=== PATIENT | male | born 1950 | race Caucasian/White ===

== ENCOUNTER 2022-08-20 10:01 | Emergency (ER) | payer OTHER ==
[~2022-08-20] VITALS: Ht 175.3 cm; Wt 130.6 kg
[2022-08-20 10:45] VITALS: BP_SYST 103
[2022-08-20] MEDS ORDERED: ALBUTEROL SULFATE 0.083% 2.5 MG/3 ML VIAL.NEB INH ONE (11:00)
[2022-08-20] MEDS ORDERED: IPRATROPIUM BROM 0.5 MG/2.5 ML VIAL.NEB (ATROVENT) INH ONE (11:00)
--- NOTE | 2022-08-20 11:00 | NUR ---
EDP SEEN PATIENT WITH ORDER SHAWNA OUT.
--- NOTE | 2022-08-20 11:15 | NUR ---
PATIENT AMBULATORY TO ER [id number] ACCOMPANIED WITH DAUGHTER, PLACE IN ROOM 3, C/O SOB AND COUGH FOR WEEKS GETTING WORSE, BBS, WILL CONTINUE TO MONITOR.
[2022-08-20 11:19] LABS: BASOPHILS # (AUTO) 0.1 K/uL (0.0-0.2); BASOPHILS % (AUTO) 0.7 % (0.0-2.0); EOSINOPHILS # (AUTO) 0.1 K/uL (0.0-0.4); EOSINOPHILS % (AUTO) 1.3 % (0.0-4.0); HEMATOCRIT 29.7 % (36-54); HEMOGLOBIN 9.3 g/dL (14.0-18.0); LYMPHOCYTES # (AUTO) 1.2 K/uL (1.0-5.5); LYMPHOCYTES % (AUTO) 15.5 % (20.5-51.5); MEAN CORPUSCULAR HEMOGLOBIN 28 pg (27-31); MEAN CORPUSCULAR HGB CONC 31 % (32-36); MEAN CORPUSCULAR VOLUME 89 fL (79.0-98.0); MONOCYTES # (AUTO) 0.6 K/uL (0.0-1.0); MONOCYTES % (AUTO) 8.1 % (1.7-9.3); NEUTROPHILS # (AUTO) 5.6 K/uL (1.8-7.7); NEUTROPHILS % (AUTO) 74.4 % (40.0-70.0); PLATELET COUNT (AUTO) 165 K/uL (130-430); RED BLOOD CELL COUNT(AUTO) 3.32 MIL/uL (4.2-6.2); RED CELL DISTRIBUTION WIDTH 16.8 % (9.0-15.0); WHITE BLOOD COUNT (AUTO) 7.6 K/uL (4.8-10.8)
[2022-08-20 11:31] LABS: ANION GAP 2 (5-15); CALCIUM 8.7 mg/dL (8.4-11.0); CHLORIDE 102 mmol/L (98-107); CREATININE 1.13 mg/dL (0.55-1.30); GLUCOSE 252 mg/dL (70-99); UREA NITROGEN, BLOOD 21 mg/dL (8-21)
[2022-08-20 11:40] LABS: ALANINE AMINOTRANSFERASE 30 U/L (12-78); ALBUMIN 3.1 g/dL (3.4-4.8); ASPARTATE AMINOTRANSFERASE 14 U/L (10-37); TOTAL BILIRUBIN 0.6 mg/dL (0.0-1.0)
--- NOTE | 2022-08-20 12:20 | NUR ---
Swabbed for COVID & FLU. Sent to lab.
[2022-08-20] MEDS ORDERED: PRED20TA PO (12:32)
--- NOTE | 2022-08-20 12:52 | NUR ---
ALL RESULT BACK EDP REASSESS PATIENT AND D/C HOME WITH INSTRUCTION.
--- NOTE | 2022-08-20 12:54 | NUR ---
Patient given written and verbal discharge instructions and verbalizes understanding. ER MD discussed with patient the results and treatment provided. Patient in stable condition. ID arm band removed. IV catheter removed intact and dressing applied, no active bleeding. Rx of PREDNISONE given. Patient educated on pain management and to follow up with PMD. Pain Scale 0. Opportunity for questions provided and answered. Medication side effect fact sheet provided.
== END 2022-08-20 12:53 | disposition home or self-care (01) ==
LOC: SED 10:01
DX: J44.1 Chronic obstructive pulmonary disease with (acute) exacerbation (principal); R06.02 Shortness of breath; R05.9 Cough, unspecified; Z79.899 Other long term (current) drug therapy; Z20.822 Contact with and (suspected) exposure to COVID-19
CPT/HCPCS: 80053; 83880; 85025; 84484; 36415; 93005; 71045; 94640; 94760; 99285; 83605; 87804 ×2; 87426; J7613